=== PATIENT | male | born 1965 | race Caucasian/White ===

== ENCOUNTER 2018-12-24 07:14 | Day surgery (SDC) | payer BC ==
--- NOTE | 2018-12-24 07:40 | HP ---
DATE OF SURGERY: 12/24/2018 ANTICIPATED PROCEDURE: Colonoscopy. HISTORY OF PRESENT ILLNESS: Grandfather did have colon cancer at 60. He is 53 years old with no symptoms and presents for colonoscopy. PAST MEDICAL HISTORY: ALLERGIES: NONE. MEDICATIONS: None. PAST SURGICAL HISTORY: Right rotator cuff. Neck surgery. SOCIAL HISTORY: Negative. FAMILY HISTORY: Negative. REVIEW OF SYSTEMS: CVS: Negative. PULMONARY: Negative. GI: Negative. : Negative. PHYSICAL EXAMINATION: VITAL SIGNS: Normal. CHEST: Clear. COR: Regular. ABDOMEN: Satisfactory. IMPRESSION: Family history. PLAN: Colonoscopy.
[2018-12-24] MEDS ORDERED: Lactated Ringers 1,000 ML IV ONE (07:41)
[2018-12-24] MEDS ORDERED: Lactated Ringers 1,000 ML IV SCH (08:00)
[2018-12-24] MEDS ORDERED: DIPRIVAN 200 MG/20 ML IV ONE (08:17)
[2018-12-24] MEDS ORDERED: Ketamine HCl 50 MG/ML ONE (08:17)
[2018-12-24] MEDS ORDERED: ROBINUL ONE (09:37)
[2018-12-24 10:24] VITALS: O2SAT 100
[2018-12-24 10:29] VITALS: BP 130/81; PULSE 57
--- NOTE | 2018-12-24 10:35 | OP ---
SURGERY DATE/TIME: 12/24/2018 0928 PREOPERATIVE DIAGNOSIS: Screening. POSTOPERATIVE DIAGNOSIS: Normal except for moderate hemorrhoids. PROCEDURE: Colonoscopy complete to cecum. SURGEON: Emanuel Moody M.D. ANESTHESIA: MAC. COMPLICATIONS: None. CONDITION: Stable. INDICATION: The patient is a 53 year old requiring screening. DESCRIPTION OF PROCEDURE: Taken to the endoscopy suite. MAC sedation provided. Excellent anesthesia level was present. Scope advanced to the cecum. Clearly meandering colon, fairly large colon. Satisfactory prep. Scope advanced to the cecum, base of the cecum, ileocecal valve, ascending, hepatic, transverse, splenic, descending, sigmoid, rectum. In the anus moderate internal hemorrhoids were present. The patient tolerated the procedure satisfactorily. Findings discussed with the in the waiting room. PLAN: Follow up in ten years unless symptoms occur.
== END 2018-12-24 10:42 | disposition home or self-care (01) ==
LOC: SDC 07:14
PROVIDERS: ATTEND Surgery
DX: Z12.11 Encounter for screening for malignant neoplasm of colon (principal); Z80.0 Family history of malignant neoplasm of digestive organs; K64.8 Other hemorrhoids
CPT/HCPCS: J2704